=== PATIENT | female | born 1975 | race African-American/Black ===

== ENCOUNTER 2018-07-30 13:44 | Emergency (ER) | payer MEDICAID, OTHER ==
[~2018-07-30] VITALS: Ht 172.7 cm; Wt 60.0 kg
[~2018-07-30 13:44] MED LIST: CLON0.1T PO; FERR-63 PO; LABE100T5 PO; POTA10CA42 PO
[2018-07-30] MEDS ORDERED: ACETAMINOPHEN 325MG TABLET PO ONE (14:45)
[2018-07-30 15:08] VITALS: BP 125/78
== END 2018-07-30 15:08 | disposition home or self-care (01) ==
LOC: ER 13:44
DX: S09.8XXA Other specified injuries of head, initial encounter (principal); S16.1XXA Strain of muscle, fascia and tendon at neck level, initial encounter; I10 Essential (primary) hypertension; Z86.73 Personal history of transient ischemic attack (TIA), and cerebral infarction without residual deficits; V43.53XA Car driver injured in collision with pick-up truck in traffic accident, initial encounter; Y93.89 Activity, other specified; Y92.488 Other paved roadways as the place of occurrence of the external cause
CPT/HCPCS: 99283